=== PATIENT | male | born 1995 | race Caucasian/White ===

== ENCOUNTER 2020-02-12 15:23 | Emergency (ER) | payer SELFPAY ==
[~2020-02-12] VITALS: Ht 172.7 cm; Wt 63.5 kg
[2020-02-12] MEDS ORDERED: DEXTROAMP-AMPHE20 MG PO (15:35)
[2020-02-12] MEDS ORDERED: DEXTROAMPHETAMI10 MG PO (15:36)
[2020-02-12] MEDS ORDERED: NORCO 7.5-3251 EACH PO (20:06)
== END 2020-02-12 22:03 | disposition home or self-care (01) ==
LOC: ED 15:23
DX: S82.141A Displaced bicondylar fracture of right tibia, initial encounter for closed fracture (principal); V48.9XXA Unspecified car occupant injured in noncollision transport accident in traffic accident, initial encounter; Z79.899 Other long term (current) drug therapy
CPT/HCPCS: 73080; 73552; 73700; 73706; 90471; 90715; 96374; 99284-25; J1885; Q9967